=== PATIENT | female | born 1990 ===

== ENCOUNTER 2019-03-10 11:57 | Emergency (ER) | payer SELFPAY ==
[~2019-03-10] VITALS: Ht 167 cm; Wt 118.0 kg
[2019-03-10] MEDS ORDERED: PARO20TA5 (12:28)
[2019-03-10] MEDS ORDERED: BUPR150T20 PO (12:29)
--- NOTE | 2019-03-10 12:59 | ED Lower Extremity ---
General Chief Complaint: Lower Extremity Stated Complaint: R FOOT INJ Nursing Triage Note: RIGHT ANKLE PAIN AFTER FALLING THRU HER FLOOR APPX 1 FOOT. Nursing Sepsis Screen: No Definite Risk Source: patient Exam Limitations: no limitations History of Present Illness Date Seen by Provider: Mar 10, 2019 Time Seen by Provider: 12:45 Initial Comments 28-year-old female who presents to the emergency room with complaints of right ankle pain and swelling after falling through her kitchen floor approximately 1 foot to the sub-floor. She reports that this happened this morning and she does have a small abrasion to the right side of the ankle. She has moderate swelling to the lateral side of the ankle. Normal capillary refill and distal pulses present. Onset: this morning Pain/Injury Location: right ankle Method of Injury: fell Modifying Factors: Worse With Movement Allergies and Home Medications Allergies Coded Allergies: codeine (Verified Allergy, Severe, RASH, 03/10/19) Home Medications Bupropion HCl 150 Mg Tablet.er, 150 MG PO DAILY, (Reported) Patient Home Medication List Home Medication List Reviewed: Yes Review of Systems Constitutional: see HPI; No chills, No fever Musculoskeletal: see HPI, joint pain (right ankle) All Other Systems Reviewed Negative Unless Noted: Yes Past Bfdhmtn-Jagcqh-Pwlgpa Hx Past Med/Social Hx: Reviewed Nursing Past Med/Soc Hx Patient Social History Alcohol Use: Occasionally Uses Recreational Drug Use: No Smoking Status: Current Everyday Smoker Recent Foreign Travel: No Contact w/Someone Who Travel: No Recent Infectious Disease Expo: No Recent Hopitalizations: No Immunizations Up To Date Tetanus Booster (TDap): More than 5yrs Seasonal Allergies Seasonal Allergies: No Past Medical History Appendectomy Respiratory: No Cardiac: No Neurological: Yes Seizure Disorder : No Last Menstrual Period: Feb 20, 2019 Genitourinary: No Gastrointestinal: No Musculoskeletal: No Endocrine: No HEENT: No Cancer: No Psychosocial: Yes Anxiety, Depression Integumentary: No Family Medical History Reviewed Nursing Family Hx Physical Exam Vital Signs Vital Signs - First Documented 03/10/19 12:20 Temp 37.3 Pulse 83 Resp 16 B/P (MAP) 127/87 (100) Pulse Ox 97 O2 Delivery Room Air Capillary Refill : Less Than 3 Seconds Height, Weight, BMI Height: '" Weight: lbs. oz. kg; 42.00 BMI Method: General Appearance: WD/WN, no apparent distress Cardiovascular: normal peripheral pulses, regular rate, rhythm, no edema, no gallop, no JVD, no murmur Respiratory: chest non-tender, lungs clear, normal breath sounds, no respiratory distress, no accessory muscle use Ankles: right ankle abrasions/lacerations (abrasion to the right side of the ankle), right ankle ecchymosis (mild ecchymosis), right ankle soft tissue tenderness, right ankle swelling (and moderate swelling) Neurologic/Tendon: normal sensation, other (normal cap refill and distal pulses present. ) Neurologic/Psychiatric: alert, normal mood/affect, oriented x 3 Skin: normal color, warm/dry Progress/Results/Core Measures Results/Orders My Orders Orders - DIMITRI WORTHY Ankle, Right, 3 Views (03/10/19 12:33) Vital Signs/I&O 03/10/19 03/10/19 12:20 13:32 Temp 37.3 37.3 Pulse 83 83 Resp 16 16 B/P (MAP) 127/87 (100) 127/87 (100) Pulse Ox 97 97 O2 Delivery Room Air Blood Pressure Mean: 100 Diagnostic Imaging Diagonstic Imaging: Xray Comments [facility] [place], [place] NAME: OCTAVIOMESHA June Chang [facility] REC#: [id number] PT STATUS: REG ER : 1990 PHYSICIAN: DIMITRI WORTHY ADMIT DATE: 03/10/19/ER Draft Date of Exam:03/10/19 ANKLE, RIGHT, 3 VIEWS INDICATION: Right ankle swelling and injury. TIME OF EXAM: 12:58 p.m. Three views of the right ankle were obtained. FINDINGS: Alignment is normal. The ankle mortise is well maintained. Talar dome is smooth. No fracture or dislocation is identified. There is moderate soft tissue swelling about the lateral ankle. IMPRESSION: Lateral soft tissue swelling. No acute bony abnormality is detected. Dictated on workstation # [id number] Dict: 03/10/19 1304 Trans: 03/10/19 1307 [id number] Interpreted by: MAIA SANTOS MD Electronically signed by: Reviewed: Reviewed by Me Departure Impression Primary Impression: Sprain and strain of ankle Disposition: 01 HOME, SELF-CARE Condition: Stable/Unchanged Departure-Patient Inst. Decision time for Depature: 13:18 Patient Instructions: Ankle Sprain (DC) Add. Discharge Instructions: Ice to the sore areas at 20 minute intervals. Elevation, rest, Steve bandage as needed. Tylenol Motrin as directed by the bottle for pain relief. Follow-up with primary care within 1 week if no improvement. Return back to the emergency room for worsening symptoms or concerns as needed. All discharge instructions reviewed with patient and/or family. Voiced understanding. DIMITRI WORTHY Mar 10, 2019 12:59
--- NOTE | 2019-03-10 13:08 | Diagnostic Imaging Report ---
INDICATION: Right ankle swelling and injury. TIME OF EXAM: 12:58 p.m. Three views of the right ankle were obtained. FINDINGS: Alignment is normal. The ankle mortise is well maintained. Talar dome is smooth. No fracture or dislocation is identified. There is moderate soft tissue swelling about the lateral ankle. IMPRESSION: Lateral soft tissue swelling. No acute bony abnormality is detected. Dictated by: Dictated on workstation # [id number]
[2019-03-10 13:32] VITALS: BP 127/87
== END 2019-03-10 13:32 | disposition home or self-care (01) ==
LOC: ER 11:59
DX: S93.401A Sprain of unspecified ligament of right ankle, initial encounter (principal); G40.909 Epilepsy, unspecified, not intractable, without status epilepticus; F41.9 Anxiety disorder, unspecified; F32.9 Major depressive disorder, single episode, unspecified; F17.200 Nicotine dependence, unspecified, uncomplicated; Z88.5 Allergy status to narcotic agent; Z90.49 Acquired absence of other specified parts of digestive tract; W17.89XA Other fall from one level to another, initial encounter; Y92.000 Kitchen of unspecified non-institutional (private) residence as the place of occurrence of the external cause
CPT/HCPCS: 73610

== ENCOUNTER 2020-08-26 10:16 | Emergency (ER) | payer OTHER ==
[~2020-08-26] VITALS: Ht 167 cm; Wt 127.0 kg
[2020-08-26 10:16] VITALS: BP 138/89
[~2020-08-26 10:16] MED LIST: BUPR150T28 PO; PARO20TA5
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
[2020-08-26 10:40] LABS: HEMOGLOBIN 12.3 g/dL (11.5-16.0); WHITE BLOOD COUNT 8.1 10^3/uL (4.3-11.0)
[2020-08-26 10:50] LABS: CHLORIDE 105 MMOL/L (98-107); POTASSIUM 3.9 MMOL/L (3.6-5.0); SODIUM 134 MMOL/L (135-145)
[2020-08-26 10:51] LABS: CALCIUM 8.7 MG/DL (8.5-10.1)
[2020-08-26 10:53] LABS: GLUCOSE 135 MG/DL (70-105); TOTAL PROTEIN 7.3 GM/DL (6.4-8.2)
[2020-08-26 10:54] LABS: BILIRUBIN,TOTAL 0.3 MG/DL (0.1-1.0); CARBON DIOXIDE 20 MMOL/L (21-32)
[2020-08-26 10:56] LABS: ALKALINE PHOSPHATASE 62 U/L (40-136); CREATININE SERUM 0.71 MG/DL (0.60-1.30); GFR ESTIMATED > 60
[2020-08-26 10:57] LABS: BUN/CREATININE RATIO 13
[2020-08-26 10:58] LABS: BILIRUBIN,DIRECT 0.2 MG/DL (0.0-0.3); BILIRUBIN,INDIRECT 0.1 MG/DL
[2020-08-26 10:59] LABS: ALANINE AMINOTRANSFERASE 21 U/L (0-55)
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
[2020-08-26 11:49] LABS: BILIRUBIN,URINE NEGATIVE (NEGATIVE); CLARITY,URINE CLEAR; COLOR,URINE YELLOW; GLUCOSE, URINE (UA) NEGATIVE (NEGATIVE); KETONES,URINE NEGATIVE (NEGATIVE); LEUKOCYTE ESTERASE ,URINE NEGATIVE (NEGATIVE); NITRITE,URINE NEGATIVE (NEGATIVE); PH,URINE 7.5 (5-9); PROTEIN,URINE NEGATIVE (NEGATIVE)
[2020-08-26 12:01] LABS: BACTERIA,URINE FEW /HPF
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
[2020-08-26] MEDS ORDERED: CYCL10TA9 PO (12:24)
== END 2020-08-26 12:38 | disposition home or self-care (01) ==
LOC: EDUNIT# 10:16 → ER 10:17
DX: M25.511 Pain in right shoulder (principal); M25.561 Pain in right knee; F32.9 Major depressive disorder, single episode, unspecified; Z88.5 Allergy status to narcotic agent
CPT/HCPCS: 72072; 72100; 73030; 73562; 80048; 80076; 81000; 84703; 85027; 93041; 99283; G0480; 36415; 80320